=== PATIENT | female | born 1960 | race Two or more races ===

== ENCOUNTER 2024-08-10 09:30 | Emergency (ER) | payer OTHER ==
[~2024-08-10] VITALS: Ht 162.6 cm; Wt 77.1 kg
[2024-08-10] MEDS ORDERED: AUGMENTIN125 MG/5 M PO (09:46)
[2024-08-10] MEDS ORDERED: NORVASC5 MG PO (09:46)
[2024-08-10] MEDS ORDERED: DEXAMETHASONE SODIUM PHOSPHATE 4 MG/ML VIAL IV STA (10:19)
[2024-08-10] MEDS ORDERED: DEXAMETHASONE SODIUM PHOSPHATE 4 MG/ML VIAL ONE (10:46)
[2024-08-10] MEDS ORDERED: CEFTRIAXONE SODIUM 2,000 MG VIAL ONE (10:46)
[2024-08-10 11:17] LABS: HEMATOCRIT 41.8 % (36.0-45.00); HEMOGLOBIN 14.1 g/dL (12.0-15.00); MEAN CELL VOLUME 87.8 fL (80.00-100.00); MEAN CORPUSCULAR HEMOGLOBIN 29.7 pg (27.00-32.0); MEAN CORPUSCULAR HGB CONC 33.8 g/dl (32.0-36.0); PLATELET COUNT 288 K/uL (150-450); RED BLOOD COUNT 4.76 M/uL (4.00-6.00); RED CELL DISTRIBUTION WIDTH 13.6 % (11.5-14.5)
[2024-08-11] MEDS ORDERED: CEFTRIAXONE SODIUM 2,000 MG in 0.9 % SODIUM CHLORIDE 100 ML IV SCH (09:00)
== END 2024-08-10 15:15 | disposition home or self-care (01) ==
LOC: ER 09:32
PROVIDERS: General Practice
DX: L72.3 Sebaceous cyst (principal); I10 Essential (primary) hypertension